=== PATIENT | female | born 1995 | race Caucasian/White ===

== ENCOUNTER 2020-02-25 15:17 | Outpatient (CLI) | payer BC, OTHER ==
[~2020-02-25] VITALS: Ht 165.1 cm; Wt 117.7 kg
--- NOTE | 2020-02-25 15:23 | NUR ---
TANYA DUNLAP presented to unit via w/c from ED, accompanied by mother, with c/o Lt.sided abd pain x2 days. Pt. weighed, gowned, voided, and to bed. EFHM and TOCO applied, VS taken. Pt. oriented to bed controls, call light, TV, heat, and A/C controls.
[2020-02-25 15:40] VITALS: BP 107/63
--- NOTE | 2020-02-25 15:40 | NUR ---
pt reports seeing Dr. Porter @ first OB appointment today @ 0900. moved here from [place] 2 weeks ago. states having Lt.sided abd pain that started x2 days ago, becoming worse. denies vaginal bleeding, leaking fluid. +FM. tenderness palpated to Lt.quad. abd soft to palpation.
[2020-02-25] MEDS ORDERED: PREN1TAB79 PO (15:57)
[2020-02-25] MEDS ORDERED: SERT100T PO (15:57)
[2020-02-25] MEDS ORDERED: SERT50TA2 PO (15:57)
[2020-02-25 16:03] VITALS: BP 107/63
[2020-02-25 16:07] LABS: BILIRUBIN,URINE NEGATIVE (NEGATIVE); CLARITY,URINE CLEAR; COLOR,URINE YELLOW; GLUCOSE, URINE (UA) NEGATIVE (NEGATIVE); KETONES,URINE TRACE (NEGATIVE); LEUKOCYTE ESTERASE ,URINE NEGATIVE (NEGATIVE); NITRITE,URINE NEGATIVE (NEGATIVE); PROTEIN,URINE NEGATIVE (NEGATIVE)
--- NOTE | 2020-02-25 16:20 | NUR ---
verbal report given to Dr. Carmichael. new orders received.
[2020-02-25 16:22] LABS: AMORPHOUS SEDIMENT,UR RARE AMOR URATES /LPF; BACTERIA,URINE FEW /HPF; CALCIUM OXALATE CRYSTALS,UR RARE /LPF
[2020-02-25] MEDS ORDERED: cefTRIAXone FOR IV USE 1,000 MG in WATER (STERILE) FOR INJECTION 10 ML IV ONE (16:45)
[2020-02-25] MEDS ORDERED: LACTATED RINGERS 1,000 ML IV SCH (16:45)
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
[2020-02-25] MEDS ORDERED: cefTRIAXone 1,000 MG IV (ROCEPHIN) VIAL ONE (16:53)
[2020-02-25] MEDS ORDERED: 0.9% SODIUM CHLORIDE PF INJ 20 ML VIAL ONE (16:54)
[2020-02-25] MEDS ORDERED: LACTATED RINGERS 1,000 ML IV ONE (16:54)
[2020-02-25] MEDS ORDERED: WATER (STERILE) FOR INJECTION 10 ML ONE (16:57)
[2020-02-25] MEDS ORDERED: LIDOCAINE 1% INJ 20 ML 20 ML VIAL INJ ONE (17:00)
[2020-02-25] MEDS ORDERED: ACETAMINOPHEN 500 MG TAB (TYLENOL) PO NR (17:00)
[2020-02-25] MEDS ORDERED: cefTRIAXone 1,000 MG/2.86 ml vial (IM ONLY) IM SCH (17:00)
[2020-02-25] MEDS ORDERED: cefTRIAXone FOR IV USE 1,000 MG in WATER (STERILE) FOR INJECTION 10 ML IV NR (17:00)
[2020-02-25 17:29] LABS: ALANINE AMINOTRANSFERASE 7 U/L (0-55); ALBUMIN 3.5 GM/DL (3.2-4.5); ALKALINE PHOSPHATASE 75 U/L (40-136); BILIRUBIN,TOTAL 0.2 MG/DL (0.1-1.0); BUN/CREATININE RATIO 11; CALCIUM 9.4 MG/DL (8.5-10.1); CARBON DIOXIDE 22 MMOL/L (21-32); CHLORIDE 105 MMOL/L (98-107); CREATININE SERUM 0.65 MG/DL (0.60-1.30); GFR ESTIMATED > 60; GLUCOSE 108 MG/DL (70-105); POTASSIUM 3.4 MMOL/L (3.6-5.0); SODIUM 137 MMOL/L (135-145); TOTAL PROTEIN 6.9 GM/DL (6.4-8.2)
--- NOTE | 2020-02-25 17:42 | Discharge Inst-Women's Service ---
Discharge Inst-Women's Serv Depart Medication/Instructions Instructions Take Tylenol for pain as needed, do not exceed 3 grams of Tylenol per day. Order a belly band or buy a belly band at your local pharmacy for round ligament pain. Final Diagnosis UTI in , Round ligament pain Problems Reviewed?: Yes Consults/Follow Up Additional Follow Up: Yes Orders/Referrals Patient to follow up with Dr. Porter as scheduled. Activity Activity: Activity as Tolerated Driving Instructions: You May Drive NO SMOKING: NO SMOKING Diet Discharge Diet: No Restrictions Symptoms to Report to : Eyesight Changes, Urine Color Change (Blood in urine), Fever Over 101 Degrees F, Pain/Pressure in Chest, Memory Changes Suddenly, Shortness of Breath For Any Problems or Questions: Contact Your Physician, Go to Emergency Room NATASHA LOBO MD Feb 25, 2020 17:42
--- NOTE | 2020-02-25 18:27 | NUR ---
IV site dc'd. dismissal instructions given, verbalizes understanding. reviewed sx's to RTC. signature page signed, placed on chart.
--- NOTE | 2020-02-25 18:30 | NUR ---
pt ambulated to private vehicle without sx's of distress. pt stable.
== END 2020-02-25 18:30 | disposition home or self-care (01) ==
LOC: LDRP 15:17 → WSo 15:17
PROVIDERS: ATTEND Family Medicine
DX: O23.43 Unspecified infection of urinary tract in pregnancy, third trimester (principal); O99.343 Other mental disorders complicating pregnancy, third trimester; Z3A.29 29 weeks gestation of pregnancy; F12.90 Cannabis use, unspecified, uncomplicated; Z91.5 Personal history of self-harm
CPT/HCPCS: 36415; 80053; 81000; 87088; 96361; 96374; 99213

== ENCOUNTER 2020-04-24 11:09 | Outpatient (RCR) | payer BC ==
[~2020-04-24] VITALS: Ht 165.1 cm; Wt 122.3 kg
[~2020-04-24 11:09] MED LIST: PREN1TAB79 PO; SERT100T PO; SERT50TA2 PO
[2020-04-25] MEDS ORDERED: ACHD5005 PO (10:41)
[2020-04-25] MEDS ORDERED: DCS100C PO (10:41)
[2020-04-25] MEDS ORDERED: IBUP-844 PO (10:41)
== END 2020-04-24 14:17 | disposition home or self-care (01) ==
LOC: PREOP 11:09
PROVIDERS: ATTEND Obstetrics & Gynecology
DX: Z01.818 Encounter for other preprocedural examination (principal)

== ENCOUNTER 2020-04-25 07:13 | Inpatient (IN) | payer BC ==
[2020-04-25] VITALS (9 sets, daily range): BP systolic 90–123; BP diastolic 43–70
[~2020-04-25] VITALS: Ht 167 cm; Wt 122.1 kg
--- NOTE | 2020-04-25 07:30 | NUR ---
TANYA DUNLAP presented to unit via ambulation from home, accompanied by mother , with c/o UNCONTROLLED GDMA 2 primary c/s. TANYA DUNLAP weighed, gowned, voided, and to bed. EFHM and TOCO applied, VS taken. TANYA DUNLAP oriented to bed controls, call light, TV, heat, and A/C controls.
[2020-04-25] MEDS ORDERED: ceFAZolin 2 GM IV Premixed 50 ML IV ONE (07:45)
[2020-04-25] MEDS ORDERED: CITRIC ACID/SOB CIT (BICITRA) 30 ML UDC PO ONE (08:00)
[2020-04-25] MEDS ORDERED: FAMOTIDINE 20MG/2ML IV (PEPCID) IV ONE (08:00)
[2020-04-25] MEDS ORDERED: METOCLOPRAMIDE INJ 10 MG/2 ML (REGLAN) IV ONE (08:00)
--- NOTE | 2020-04-25 08:07 | History & Physical-OB ---
OB - Chief Complaint & HPI Date/Time Date of Admission: Date of Admission: Apr 25, 2020 at 07:13 Date seen by a Provider: Apr 25, 2020 Time Seen by a Provider: 07:55 Chief Complaint/History OB-Reason for Admission/Chief: Section Hx : 1 Hx Para: 0 Expected Date of Delivery: Apr 27, 2020 Gestational Age in Weeks: 38 Gestational Age in Days: 2 Indication for : macrosomia (4500 gms) Other reason for admission: Patient sent from [facility] yesterday for concerns with Macrosomia, and late GDM. Patient reports checking her BS and fasting levels yesterday of 170s. EFW per [facility] 4500 gms. Discussed with patient yesterday proceeding with PLTCS at 38 weeks due to poor diabetic control. Admission Nurse Assessment Rev: Yes History of Labs see prenatals Allergies and Home Medications Allergies Coded Allergies: No Known Drug Allergies (Unverified , 02/25/20) Home Medications Vit W-Ca,Fe,FA(<1 mg) 1 Each Tablet, 1 EACH PO DAILY, (Reported) Patient Home Medication List Home Medication List Reviewed: Yes OB - History Hx of Present Care: Yes Ultrasounds: Abnormal US findings (EFW > 4500) Obstetrical Complications: Gestational Diabetes Medical Complications: None Patient Past Medical History n/a Immunizations Date of Influenza Vaccine: Apr 03, 2020 OB - Admission Exam Physical Exam HEENT: NCAT Heart: Rhythm Normal Lungs: Clear Abdomen: Gravid Extremities: Normal Reflexes: Normal Membranes: Intact Heart Rate: 130's Accelerations: Accelerations Present Decelerations: No Decelerations Short Term Variability: Present Electrocardiogram Technician Variability: Average (6-25) Contractions on Admission: None Intensity: Mild OB - Assessment/Plan/Diagnosis Assessment Assessment: section Admission Dx 24 yo @ 38.2 PLTCS EFW 4500 gms Uncontrolled GDMA2 BMI 38.2 Admission Status: Inpatient Order (span 2 midnights) Reason for Inpatient Admission: Primary LTCS Plan Plan: Section ORLANDO CALDERON DO Apr 25, 2020 08:07
[2020-04-25 08:15] LABS: BASOPHILS % (AUTO) 0 % (0-10); EOSINOPHILS % (AUTO) 0 % (0-10); HEMATOCRIT 32 % (35-52); HEMOGLOBIN 10.9 g/dL (11.5-16.0); LYMPHOCYTES % (AUTO) 18 % (12-44); MEAN CORPUSCULAR HEMOGLOBIN 30 pg (25-34); MEAN CORPUSCULAR HGB CONC 34 g/dL (32-36); MEAN CORPUSCULAR VOLUME 88 fL (80-99); MEAN PLATELET VOLUME 11.1 fL (9.0-12.2); MONOCYTES # (AUTO) 0.7 10^3/uL (0.0-1.0); MONOCYTES % (AUTO) 6 % (0-12); NEUTROPHILS # (AUTO) 8.3 10^3/uL (1.8-7.8); NEUTROPHILS % (AUTO) 76 % (42-75); PLATELET COUNT 202 10^3/uL (130-400)
--- NOTE | 2020-04-25 08:15 | Discharge Inst-Women's Service ---
Discharge Inst-Women's Serv Depart Medication/Instructions New, Converted or Re-Newed RX: RX on Chart Problems Reviewed?: Yes Consults/Follow Up Additional Follow Up: Yes Activity Activity: Activity as Tolerated Driving Instructions: No Driving for 1 Week NO SMOKING: NO SMOKING Nothing Inside Vagina: No Douching, No [place], No Tampons Diet Discharge Diet: No Restrictions Symptoms to Report to : Bleeding Excessive, Pain Increased, Fever Over 101 Degrees F, Vaginal Bleeding Increase, Questions/Concerns For Any Problems or Questions: Contact Your Physician Skin/Wound Care Infection Signs and Symptoms: Increased Redness, Foul Odor of Wound, Increased Drainage, Skin Itchy or Has a Rash, Increased Swelling, Temperature Above 101 F Operative Area Clean and Dry: Keep Incision Clean/Dry Stitches/Busby/Dermabond: Dermabond, Care of Stitches Bathing Instructions: ORLANDO James DO Apr 25, 2020 08:15
--- NOTE | 2020-04-25 08:30 | NUR ---
DR CALDERON AWARE OF DIFFICULTY OF CONTINOUS MONITORING.
--- NOTE | 2020-04-25 08:30 | NUR ---
EXTREMELY DIFFICULT TO MONITOR HEART TONES ON PT DUE TO SIZE OF PT AND BABY. ABLE TO LOCATE FHTS BUT DUE TO CONSTANT MOVEMENT OF INFANT UNABLE TO KEEP HEART TONES ON MONITOR. FHTS NOTED AT 130-140, NO DECELS NOTED, IRREGULAR CONTRACTIONS NOTED 3-6 MINUTE APART, 60-80 SECONDS IN DURATIONS, MILD TO PALPATION. PT DENIES PAIN WITH CONTRACTIONS.
[2020-04-25] MEDS: LACTATED RINGERS 1,000 ML IV PRN ×2 (08:35→09:45)
--- NOTE | 2020-04-25 09:30 | NUR ---
FHTS NOTED 135, NO DECELS NOTED, STILL VERY DIFFICULT TO MONITOR FHTS.
[2020-04-25] MEDS ORDERED: fentaNYL INJECTION 100 MCG/2 ML AMP ONE (09:55)
[2020-04-25] MEDS ORDERED: KETAMINE/NaCl 50 MG/5 ML SYRINGE (ED ONLY) ONE (09:55)
--- NOTE | 2020-04-25 10:30 | NUR ---
PT AMBULATED TO OR WITH SAP BOBJ DEVELOPER JOSE J AT SIDE, NO DISTRESS NOTED.
[2020-04-25] MEDS ORDERED: DCS100C PO (10:41)
[2020-04-25] MEDS ORDERED: IBUP-844 PO (10:41)
[2020-04-25] MEDS ORDERED: ACHD5005 PO (10:41)
[2020-04-25] MEDS ORDERED: TETANUS,DIPTH,PERTUSS P/F (BOOSTRIX) 0.5 ML VIAL IM SCH (10:45)
[2020-04-25] MEDS ORDERED: ONDANSETRON 4 MG/2 ML (SDV) Z0FRAN IVP PRN (10:45)
[2020-04-25] MEDS ORDERED: MEASLES,MUMPS,RUBELLA 1 EA INJ SC SCH (10:45)
[2020-04-25] MEDS ORDERED: ONDANSETRON 4 MG/2 ML (SDV) Z0FRAN ONE (11:34)
[2020-04-25] MEDS ORDERED: KETOROLAC 30 MG/ML VIAL ONE (11:35)
[2020-04-25] MEDS ORDERED: PHENYLEPHRINE 100 MCG/ML 10 ML (ANESTHESIA) SYR ONE (11:35)
[2020-04-25] MEDS ORDERED: OXYTOCIN PRE-MIX DRIP 1,000 ML IV ONE (11:37)
[2020-04-25] MEDS ORDERED: BUPIVACAINE 0.5% 30 ML (SENSORCAINE) VIAL ONE (12:23)
--- NOTE | 2020-04-25 13:00 | NUR ---
report received from geronimo doshi rn at this time
[2020-04-25] MEDS: OXYTOCIN PRE-MIX DRIP 500 ML IV SCH (13:16)
[2020-04-25] MEDS: HYDROcodone/APAP 5 MG/325 MG (LORTAB) TAB PO PRN ×3 (13:28→20:16)
--- NOTE | 2020-04-25 14:48 | NUR ---
Pt to nursery via wheelchair with this RN to see baby.
[2020-04-25] MEDS: KETOROLAC 30 MG/ML VIAL IV SCH (17:25)
[2020-04-25] MEDS: CATHETER FLUSH 10 ML SYR IV SCH (17:25)
--- NOTE | 2020-04-25 17:30 | NUR ---
Rn at bedside. VSS, Toradol admin, see eMAR. Pt assisted up to bathroom at this time. Void 200ml, pericare, gown changed.
--- NOTE | 2020-04-25 19:06 | NUR ---
report given to dayton almaguer
--- NOTE | 2020-04-25 19:45 | OPERATIVE REPORT ---
DATE OF SERVICE: 04/25/2020 PREOPERATIVE DIAGNOSES: 1. A 24-year-old at 38 weeks and 1 day gestation. 2. Poor compliance and control with gestational diabetes, A2. 3. Suspected macrosomia. POSTOPERATIVE DIAGNOSES: 1. A 24-year-old at 38 weeks and 1 day gestation. 2. Poor compliance and control with gestational diabetes, A2. 3. Suspected macrosomia. 4. macrosomia. SURGEON: Clovis Lundy DO. PROCEDURE PERFORMED: Primary low transverse section. SUPERVISOR ESTIMATOR AND DRAFTER: Bernadine Álvarez DNP, was necessary for manipulation and retraction throughout the procedure. ANESTHESIA: Spinal. ESTIMATED BLOOD LOSS: 700 mL. URINE OUTPUT: 100 mL clear at the end of the procedure. FLUIDS: 1400 mL lactated Ringer's solution. FINDINGS: A live male , weighing 9 pounds 8 ounces with Apgars pending. Grossly normal appearing uterus, bilateral fallopian tubes and ovaries as well as a true knot in the cord. SPECIMEN SENT: Placenta. INDICATIONS FOR PROCEDURE: This 24-year-old female patient has consulted my office yesterday for macrosomia identified on ultrasound at [facility]. She was also found to have a fasting blood sugar this morning approximately 170. Due to the undiagnosed gestational diabetes and the weight, I discussed with the patient proceeding with a primary . This was recommended due to her EFW and underlying gestational diabetes diagnosis. Risk of was reviewed with the patient in detail. After all her questions were answered, consent was obtained in the preoperative area and the patient was taken to the operating room. OPERATIVE REPORT IN DETAIL: Once in the operating room, spinal anesthesia was found to be adequate, placed in supine position with leftward tilt, prepped and draped in normal sterile fashion. Timeout was performed and anesthesia was tested. A Pfannenstiel skin incision was then made with a knife and carried down through layer of fascia using Bovie cautery. Fascial incision was extended laterally using Bovie cautery. Superior aspect of fascial incision was then grasped with Santhosh clamps, tented up and dissected off the underlying rectus muscles. The inferior aspect of fascial incision was then grasped with Santhosh clamps, tented up and dissected off the underlying rectus muscles. Rectus muscles were dissected down the midline using Jessica scissors, which exposed the peritoneum, which I entered bluntly using blunt traction. Cayetano ring retractor was placed in the peritoneal incision, which offered excellent lateral sidewall retraction. I then identified the lower uterine segment, which was found to be thinned out. A low transverse incision made through the vesicouterine peritoneum and this was bluntly dissected off the lower uterine segment. I then proceeded with myotomy until membranes were visualized, at which point, I extended the uterine incision laterally and superiorly using bandage scissors. Amniotomy was performed, clear fluid was noted. A copious amount of fluid is expressed from the uterus. The infant was found in vertex presentation. With gentle fundal pressure, the infant's head is elevated up to the incision where it was delivered through the incision. The nares and oropharynx were bulb suctioned. Anterior and posterior shoulders were delivered and the infant was then brought out to the operative field with cord doubly clamped and cut and infant handed off to waiting worship pastor, Dr. Porter who is present for delivery. Cord blood was collected, 3-vessel cord and intact placenta was delivered spontaneously thereafter. IV Pitocin was initiated to facilitate uterine contraction. Uterine fundus became firm with bimanual massage. Uterus was exteriorized and cleared of all endometrial clots and debris. I then proceeded with closing the uterine incision using #0 Vicryl suture in running locked fashion, second layer of imbricating #0 Monocryl was placed. Excellent hemostasis was noted after doing this. I then placed the uterus back in the pelvis and copiously irrigated the pelvis using normal saline. There was no active bleeding noted from any of my dissection planes. I placed Interceed antiadhesive over my low transverse incision and then proceeded with closing the peritoneum after I removed the Cayetano ring retractor. The peritoneum was reapproximated using 3-0 Vicryl suture in running fashion. Rectus muscle reapproximated using 3-0 Vicryl suture in interrupted fashion. The fascia was reapproximated using #0 Vicryl suture in running fashion. Subcutaneous tissue was reapproximated using 3-0 plain interrupted subcutaneous stitch and skin reapproximated using 4-0 Monocryl running subcuticular. Dermabond was applied to incision and sterile dressing with adhesive white tape. The patient tolerated the procedure well and sent to recovery in stable condition. Lap and sponge counts were correct at the end of the procedure. Instrument counts correct as well. Two grams of Ancef given preoperatively for infection prophylaxis. Job ID: [id number] DocumentID: [id number] Dictated Date: 04/25/2020 11:52:23 Policy Change Clerk Date: 04/25/2020 19:45:02 Dictated By: CLOVIS LUNDY DO
[2020-04-25] MEDS: DOCUSATE SODIUM 100 MG (COLACE) CAP PO SCH (20:09)
--- NOTE | 2020-04-25 20:20 | NUR ---
Pt put light on to ask for assistance with breastpump. Pump hooked up and running. Pt states has headache that was not helped by the lortab or by drinking caffeine. Encouraged to continue to hydrate and will lay prone when finished pumping. will monitor.
--- NOTE | 2020-04-25 20:45 | NUR ---
Pt up to wc with standby assist. Tolerated well. Transferred to nsy to view . Pt next to wes warmer viewing and bonding well. Nsy rn Linda at side. Pt remains in nsy at this time.
--- NOTE | 2020-04-25 21:45 | NUR ---
Pt back to room per wc accompanied by megan almaguer. Pt up to void, able to void. Pt up to sit in chair. out to mom's room per crib accompanied by wyatt rn. to mom's arms.
[2020-04-26] VITALS: BP 117/59
[2020-04-26] MEDS: KETOROLAC 30 MG/ML VIAL IV SCH ×4 (00:07→00:48)
[2020-04-26] MEDS: CATHETER FLUSH 10 ML SYR IV SCH ×2 (00:07→00:46)
[2020-04-26] MEDS ORDERED: IBUPROFEN 800 MG (MOTRIN) TAB PO ONE (00:13)
[2020-04-26] MEDS ORDERED: IBUPROFEN 600 MG (MOTRIN) TAB PO ONE ×2 (00:14→05:29)
[2020-04-26] MEDS: IBUPROFEN 600 MG (MOTRIN) TAB PO SCH ×4 (00:15→22:10)
[2020-04-26] MEDS: OXYTOCIN PRE-MIX DRIP 500 ML IV SCH (00:44)
[2020-04-26] MEDS: LACTATED RINGERS 1,000 ML IV PRN (00:46)
[2020-04-26 05:26] LABS: BASOPHILS % (AUTO) 0 % (0-10); EOSINOPHILS % (AUTO) 0 % (0-10); HEMATOCRIT 27 % (35-52); LYMPHOCYTES # (AUTO) 1.9 10^3/uL (1.0-4.0); LYMPHOCYTES % (AUTO) 18 % (12-44); MEAN CORPUSCULAR HEMOGLOBIN 29 pg (25-34); MEAN CORPUSCULAR HGB CONC 33 g/dL (32-36); MEAN CORPUSCULAR VOLUME 89 fL (80-99); MEAN PLATELET VOLUME 11.3 fL (9.0-12.2); MONOCYTES # (AUTO) 0.7 10^3/uL (0.0-1.0); MONOCYTES % (AUTO) 7 % (0-12); NEUTROPHILS # (AUTO) 7.9 10^3/uL (1.8-7.8); NEUTROPHILS % (AUTO) 74 % (42-75); PLATELET COUNT 180 10^3/uL (130-400); WHITE BLOOD COUNT 10.6 10^3/uL (4.3-11.0)
[2020-04-26 05:30] VITALS: BP 109/56
--- NOTE | 2020-04-26 08:07 | Postpartum Progress Note ---
Note Note Day # 1 Subjective: Patient is without complaints. Ambulating, voiding. Tolerating a regular diet without nausea or vomiting. Normal lochia. Pain is well controlled with oral pain medications. Objective: Physical Exam: General - Alert and oriented, no apparent distress Abdomen - Soft, appropriately tender to palpation, non-distended, fundus firm at umbilicus Extremities - no edema, negative [employer] bilaterally Incision- c/d/i Assessment: POD 1 PLTCS Acute blood loss anemia GDMA2- with continued BS control issues Plan: Routine care. Encourage breast feeding. Encourage ambulation. Ferrous sulfate supplementation. Starting on low dose metformin today Plan for discharge tomorrow Vitals - Labs Vital Signs - I&O Vital Signs Date Time Temp Pulse Resp B/P (MAP) Pulse Ox O2 Delivery O2 Flow Rate FiO2 04/26/20 05:30 36.2 75 18 109/56 (73) 95 Room Air 04/26/20 00:00 36.4 86 18 117/59 (78) 96 Room Air 04/25/20 20:00 36.2 89 18 115/67 (83) 95 Room Air 04/25/20 17:30 36.7 77 16 114/58 (76) 96 Room Air 04/25/20 13:28 36.8 57 18 123/57 (79) 97 Room Air 04/25/20 12:45 36.4 20 104/45 (64) 98 Room Air 04/25/20 12:45 Room Air 04/25/20 12:40 Room Air 04/25/20 12:40 36.6 20 90/43 (59) 97 Room Air 04/25/20 12:25 Room Air 04/25/20 12:25 36.4 20 102/64 (77) 98 Room Air 04/25/20 12:10 Room Air 04/25/20 12:10 36.4 20 102/66 (78) 98 Room Air I & O 04/26/20 07:00 Intake Total 4740 ml Output Total 1375 ml Balance 3365 ml Labs Laboratory Tests 04/25/20 08:29: Glucometer 103 04/25/20 12:05: Coronavirus (COVID-19)(PCR) Negative 04/25/20 20:06: Glucometer 121H 04/26/20 04:55: White Blood Count 10.6, Red Blood Count 3.06L, Hemoglobin 9.0L, Hematocrit 27L, Mean Corpuscular Volume 89, Mean Corpuscular Hemoglobin 29, Mean Corpuscular Hemoglobin Concent 33, Red Cell Distribution Width 14.6H, Platelet Count 180, Mean Platelet Volume 11.3, Immature Granulocyte % (Auto) 0, Neutrophils (%) (Auto) 74, Lymphocytes (%) (Auto) 18, Monocytes (%) (Auto) 7, Eosinophils (%) (Auto) 0, Basophils (%) (Auto) 0, Neutrophils # (Auto) 7.9H, Lymphocytes # (Auto) 1.9, Monocytes # (Auto) 0.7, Eosinophils # (Auto) 0.0, Basophils # (Auto) 0.0, Immature Granulocyte # (Auto) 0.0 04/26/20 05:38: Glucometer 111H ORLANDO CALDERON DO Apr 26, 2020 08:07
[2020-04-26 10:30] VITALS: BP 116/63
[2020-04-26] MEDS: DOCUSATE SODIUM 100 MG (COLACE) CAP PO SCH ×2 (10:44→22:10)
[2020-04-26] MEDS: metFORMIN XR 500 MG (GLUCOPHAGE XR) TAB PO SCH (10:44)
[2020-04-26] MEDS: HYDROcodone/APAP 5 MG/325 MG (LORTAB) TAB PO PRN (10:52)
--- NOTE | 2020-04-26 14:58 | Anesthesia-Regional Post-Op ---
Regional Patient Condition Mental Status: Alert, Oriented x3 Circulation: Same as Pre-Op Headache: Absent Sensation: Full Recovery Motor Block: Absent Post Op Complications Complications None Follow Up Care/Instructions Patient Instructions None needed. Anesthesia/Patient Condition Patient is doing well, no complaints, stable vital signs, no apparent adverse anesthesia problems. No complications reported per nursing. MATT MAJOR CRNA Apr 26, 2020 14:58
[2020-04-26 15:20] VITALS: BP 122/74
--- NOTE | 2020-04-26 22:10 | NUR ---
5-6 cm round lump palpated in pt's abd when lifting panus to view pt's incision. No external bruising or redness noted. Pt denies any tenderness to the area. Will continue to monitor.
[2020-04-26 22:12] VITALS: BP 112/58
--- NOTE | 2020-04-27 01:00 | NUR ---
cold tray provided per pt's request.
[2020-04-27] MEDS: HYDROcodone/APAP 5 MG/325 MG (LORTAB) TAB PO PRN (04:26)
[2020-04-27] MEDS: IBUPROFEN 600 MG (MOTRIN) TAB PO SCH ×2 (04:26→09:58)
--- NOTE | 2020-04-27 04:30 | NUR ---
pt put oracle applications analyst light c/o headache. Pt concerned about a possible spinal headache. Pt states headache is worse with laying flat. States headache is better with position changes. Verbalized with pt that upon assessment it doesn't appear to be a spinal headache but would let anesthesia know. Motrin and lortab given.
[2020-04-27 04:59] VITALS: BP 121/68
[2020-04-27] MEDS: metFORMIN XR 500 MG (GLUCOPHAGE XR) TAB PO SCH (07:32)
--- NOTE | 2020-04-27 07:32 | NUR ---
Scheduled Metformin PO given at this time.
[2020-04-27 09:55] VITALS: BP 108/60
--- NOTE | 2020-04-27 09:55 | NUR ---
AM shift assessment completed and vital signs obtained, see interventions. Plan of care reviewed with patient. Patient verbalizes understanding and questions answered. Scheduled Colace and Motrin PO given.
[2020-04-27] MEDS: DOCUSATE SODIUM 100 MG (COLACE) CAP PO SCH (09:58)
--- NOTE | 2020-04-27 10:30 | NUR ---
Dr. Lundy here to see patient. New orders received.
--- NOTE | 2020-04-27 10:38 | Postpartum Progress Note ---
Note Note Day # 2 Subjective: Patient is without complaints. Ambulating, voiding. Tolerating a regular diet without nausea or vomiting. Normal lochia. Pain is well controlled with oral pain medications. Objective: Physical Exam: General - Alert and oriented, no apparent distress Abdomen - Soft, appropriately tender to palpation, non-distended, fundus firm at umbilicus Extremities - no edema, negative Taco's bilaterally Incision- c/d/i Assessment: POD 2 PLTCS Acute blood loss anemia Plan: Routine care. Encourage breast feeding. Encourage ambulation. Ferrous sulfate supplementation. Continue metformin at discharge Plan for discharge today Vitals - Labs Vital Signs - I&O Vital Signs Date Time Temp Pulse Resp B/P (MAP) Pulse Ox O2 Delivery O2 Flow Rate FiO2 04/27/20 09:55 36.7 86 18 108/60 (76) 96 Room Air 04/27/20 04:59 36.9 76 20 121/68 (85) 97 Room Air 04/26/20 22:12 84 20 112/58 (76) 97 Room Air 04/26/20 15:20 36.4 82 16 122/74 (90) 99 Room Air Labs Laboratory Tests 04/26/20 22:16: Glucometer 102 04/27/20 07:28: Glucometer 113H 04/27/20 09:51: Glucometer 117H ORLANDO CALDERON DO Apr 27, 2020 10:38
--- NOTE | 2020-04-27 11:09 | NUR ---
Discharge instructions and medications reviewed with patient both written and verbally. Patient verbalizes understanding and questions answered. Written prescriptions provided to patient.
--- NOTE | 2020-04-27 12:15 | NUR ---
Patient discharged at this time via wheelchair and accompanied down to awaiting private vehicle by this RN. No signs or symptoms of distress noted.
== END 2020-04-27 12:15 | disposition home or self-care (01) | DRG 787 ==
LOC: LDRP 07:13 → WS 13:00
PROVIDERS: ADMIT Obstetrics & Gynecology; ATTEND Obstetrics & Gynecology
PROC: 10D00Z1 Extraction of Products of Conception, Low, Open Approach (ICD-10-PCS; principal; 2020-04-25 10:33)
DX: O34.211 Maternal care for low transverse scar from previous cesarean delivery (principal); D62 Acute posthemorrhagic anemia; Z3A.38 38 weeks gestation of pregnancy; Z37.0 Single live birth; O24.92 Unspecified diabetes mellitus in childbirth; O66.2 Obstructed labor due to unusually large fetus; O90.81 Anemia of the puerperium
CPT/HCPCS: 36415; 82962; 85025; 86850; 86900; 86901; 87635; 90715; 94664

== ENCOUNTER 2021-02-06 00:24 | Observation (INO) | payer MEDICAID ==
[~2021-02-06] VITALS: Ht 165.1 cm; Wt 117.0 kg
[~2021-02-06 00:24] MED LIST changes: +ACHD5005 PO; +DCS100C PO; +IBUP-844 PO
[2021-02-06] MEDS ORDERED: LACTATED RINGERS 1,000 ML IV ONE ×2 (00:45→03:00)
[2021-02-06 00:50] LABS: BILIRUBIN,URINE NEGATIVE (NEGATIVE); CLARITY,URINE SL CLOUDY; COLOR,URINE YELLOW; GLUCOSE, URINE (UA) NEGATIVE (NEGATIVE); KETONES,URINE NEGATIVE (NEGATIVE); LEUKOCYTE ESTERASE ,URINE NEGATIVE (NEGATIVE); NITRITE,URINE NEGATIVE (NEGATIVE); PROTEIN,URINE 3+ (NEGATIVE)
[2021-02-06 01:01] LABS: BACTERIA,URINE NEGATIVE /HPF; CALCIUM OXALATE CRYSTALS,UR FEW /LPF; WBC,URINE 0-2 /HPF
[2021-02-06 01:04] LABS: AMPHETAMINE SCREEN, URINE NEGATIVE (NEGATIVE); BARBITURATE SCREEN URINE NEGATIVE (NEGATIVE); BENZODIAZEPINES SCREEN URINE NEGATIVE (NEGATIVE); CANNABINOID SCREEN, URINE POSITIVE (NEGATIVE); COCAINE SCREEN URINE NEGATIVE (NEGATIVE); HCG,QUALITATIVE URINE NEGATIVE (NEGATIVE); METHADONE STAT NEGATIVE (NEGATIVE); METHAMPHETAMINE SCREEN URINE S NEGATIVE (NEGATIVE); OPIATE SCREEN URINE NEGATIVE (NEGATIVE); OXYCODONE STAT NEGATIVE (NEGATIVE); PROPOXYPHENE STAT NEGATIVE (NEGATIVE); TRICYCLIC ANTIDEPRESSANTS SCRE NEGATIVE (NEGATIVE)
[2021-02-06 01:04] LABS: BASOPHILS % (AUTO) 0 % (0-10); EOSINOPHILS # (AUTO) 0.1 10^3/uL (0.0-0.3); EOSINOPHILS % (AUTO) 1 % (0-10); HEMATOCRIT 38 % (35-52); HEMOGLOBIN 12.9 g/dL (11.5-16.0); LYMPHOCYTES # (AUTO) 3.1 10^3/uL (1.0-4.0); LYMPHOCYTES % (AUTO) 35 % (12-44); MEAN CORPUSCULAR HEMOGLOBIN 30 pg (25-34); MEAN CORPUSCULAR HGB CONC 34 g/dL (32-36); MEAN CORPUSCULAR VOLUME 88 fL (80-99); MEAN PLATELET VOLUME 9.6 fL (9.0-12.2); MONOCYTES # (AUTO) 0.5 10^3/uL (0.0-1.0); MONOCYTES % (AUTO) 6 % (0-12); NEUTROPHILS # (AUTO) 5.1 10^3/uL (1.8-7.8); NEUTROPHILS % (AUTO) 58 % (42-75); PLATELET COUNT 300 10^3/uL (130-400); WHITE BLOOD COUNT 8.8 10^3/uL (4.3-11.0)
[2021-02-06 01:17] LABS: ALBUMIN 4.7 GM/DL (3.2-4.5); CHLORIDE 105 MMOL/L (98-107); POTASSIUM 3.4 MMOL/L (3.6-5.0); SODIUM 145 MMOL/L (135-145)
[2021-02-06 01:18] LABS: CALCIUM 9.4 MG/DL (8.5-10.1)
[2021-02-06 01:20] LABS: GLUCOSE 104 MG/DL (70-105); TOTAL PROTEIN 8.6 GM/DL (6.4-8.2)
[2021-02-06 01:21] LABS: BILIRUBIN,TOTAL 0.2 MG/DL (0.1-1.0); CARBON DIOXIDE 21 MMOL/L (21-32)
[2021-02-06 01:23] LABS: ALKALINE PHOSPHATASE 64 U/L (40-136); CREATININE SERUM 0.84 MG/DL (0.60-1.30); GFR ESTIMATED 83
[2021-02-06 01:25] LABS: BUN/CREATININE RATIO 26
[2021-02-06 01:26] LABS: ALANINE AMINOTRANSFERASE 18 U/L (0-55); SALICYLATE < 5.0 MG/DL (5.0-20.0)
[2021-02-06] MEDS ORDERED: LIDOCAINE/EPI 1%-1:100,000 (XYLOCAINE) 20ML INJ ONE (01:30)
[2021-02-06 01:32] LABS: ACETAMINOPHEN < 10 UG/ML (10-30)
[2021-02-06] MEDS ORDERED: LORazepam INJ 2 MG/ML (ATIVAN) VIAL IVP ONE (02:00)
[2021-02-06] MEDS ORDERED: HALOPERIDOL 5 MG/ML (HALDOL) VIAL IV ONE (02:00)
[2021-02-06] MEDS ORDERED: diphenhydrAMINE 50 MG/ML INJ (BENADRYL) IVP ONE (02:00)
--- NOTE | 2021-02-06 03:30 | ED Psychosocial ---
General Chief Complaint: Psych/Social Disorder Stated Complaint: ILLNESS Nursing Triage Note: PT PRESENTS TO ROOM #8 VIA [facility] GURNEY FROM HOME W/CO SELF INFLICTED INJURIES TO R ARM. EMS ADVISE PRIOR TO ARRIVAL ON SCENE PT CUT HERSELF MULTIPLE TIMES WITH A RAZOR BLADE. EMS ADVISE THEY WERE ABLE TO CONTROL BLEEDING TO INJURIES WITH PRESSURE DRSG. UPON ARRIVAL PT NOTABLY INTOXICATED AND TEARFUL REPORTING SHE DRANK 1/2 GALLON OF ESTEFANI BEAM WHISKEY PRIOR TO CUTTING HER R FA MULTIPLE TIMES WITH A RAZOR BLADE. MULTIPLE DEEP LACERATIONS NOTED TO R FA. WHEN ASKED PROMPTED PT TO CUT HER SELF PT STATES, "MY HEART HURTS. I DIDN'T THINK I WAS GOOD ENOUGH FOR MY BABY." WHEN ASKED IF PT WAS ATTEMPITNG TO KILL HERSELF WITH SELF INFLICTED INJURIES PT STATES, "NO I WAS NOT AND I'M NOT SUICIDAL EITHER. I KNOW HOW THIS SH*T WORKS!" PT REPORTS SHE MOVED TO THIS AREA X1 YEAR AGO FROM [place] TO LIVE WITH HER MOM AFTER A BREAK UP. PT REPORTS HX INPATIENT PSYCHIATRIC TX. PT REPORTS SHE HAS MISSED MULTIPLE SCHEDULE APPOINTMENTS WITH HER THERAPIST STATING, "I WASN'T ABLE TO GET OUT OF BED BECAUSE I'M SO DEPRESSED." PT REPORTS HX CUTTING. Source: police, EMS Exam Limitations: intoxication (PT IS INTOXICATED AND BELLIGERENT AND UNABLE TO OBTAIN A RELIABLE HISTORY ) History of Present Illness Date Seen by Provider: Feb 06, 2021 Time Seen by Provider: 00:27 Initial Comments PT ARRIVES VIA EMS WITH [place] [employer]ICERS, FROM HOME PT CALLED 911 HERSELF, AFTER INTENTIONALLY CUTTING HER RIGHT FOREARM MULTIPLE TIMES WITH A RAZOR BLADE PT WAS OUTSIDE WAITING ON THE PORCH WHEN POLICE AND EMS ARRIVED AT THE SCENE PT STATES SHE IS VERY DEPRESSED, AND "MY HEART HURTS" PT ADMITS TO DRINKING 1/2 GALLON OF ESTEFANI BEAM WHISKEY [facility] POLICE STATE THAT PT'S MOM AND STEP-FATHER WERE AT WORK THIS EVENING WHEN THIS OCCURRED, AND PT'S 9 MONTH OLD CHILD IS CURRENTLY WITH THEM POLICE STATE THAT WHEN THEY TALKED WITH PATIENT'S MOM AND STEP-FATHER, THEY REPORT THAT PT DRINKS VERY HEAVILY EVERY DAY--WHISKEY--AND HAS "CUT BACK ALOT" AND IS NOW "DOWN TO A GALLON OF WHISKEY A DAY" THEY ALSO REPORTED TO POLICE THAT THIS BEHAVIOR IS A FREQUENT ISSUE WITH THE PATIENT AND TOLD POLICE "SHE DOES THIS ALL THE TIME" PT ADMITS TO MULTIPLE PSYCH ADMITS SINCE THE AGE OF 16 STATES SHE WAS IN A [facility]ILITY FOR 7 MONTHS AT THE AGE OF 16, AND THEN WAS IN ONE FOR OVER A YEAR, IN ADDITION TO MULTIPLE OTHER SHORT TERM PSYCH ADMITS. PT STATES SHE IS SUPPOSED TO BE ON MEDICATIONS FOR DEPRESSION, BUT DOES NOT TAKE THEM STATES SHE HAS HAD MULTIPLE MENTAL HEALTH APPOINTMENTS, BUT HAS NEVER WENT "BECAUSE I WAS TOO DEPRESSED TO GET OUT OF BED" AT ONE POINT, PT STATED THAT SHE "WASN'T SUICIDAL--I KNOW HOW THIS SHIT WORKS" PT STATES HER MOM AND STEP-FATHER MOVED HERE FROM [place] ABOUT 2 YEARS AGO, AND SHE MOVED HERE ABOUT 1 YEAR AGO, AND LIVES WITH THEM AND HER 9 MONTH OLD CHILD. PT DID DELIVER HERE IN APRIL 2020--PT'S ONLY OTHER VISIT HERE PT STATES SHE IS UP TO DATE ON TETANUS VACCINATION--STATES "I'VE HAD 4 IN THE LAST YEAR" PCP: PT HAS BE[place] [facility] [place] SHE [place]ED 04/2020 Allergies and Home Medications Allergies Coded Allergies: No Known Drug Allergies (Unverified , 02/25/20) Home Medications Docusate Sodium 100 Mg Capsule, 100 MG PO BID PRN for CONSTIPATION-1ST LINE Prescribed by: ORLANDO CALDERON on 04/25/20 1041 Hydrocodone/Acetaminophen 1 Each Tablet, 1-2 TAB PO Q6HR PRN for PAIN-MODERATE (5-7) Prescribed by: ORLANDO CALDERON on 04/25/20 1041 Ibuprofen 600 Mg Tablet, 600 MG PO Q6HR Prescribed by: ORLANDO CALDERON on 04/25/20 1041 Vit W-Ca,Fe,FA(<1 mg) 1 Each Tablet, 1 EACH PO DAILY, (Reported) Patient Home Medication List Home Medication List Reviewed: Yes Review of Systems Constitutional: other (UNABLE TO OBTAIN FROM PT) Musculoskeletal: see HPI Skin: see HPI Psychiatric/Neurological: See HPI Past Ipuoxfh-Nicono-Gzxgbx Hx Patient Social History Tobacco Use?: No Tobacco type used: Cigarettes Smoking Status: Former Smoker Substance use?: No Alcohol Use?: Yes (OVER A GALLON OF WHISKEY/HARD LIQUOR DAILY) Alcohol type: Hard Liquor Alcohol Frequency: Daily Pt feels they are or have been: No Immunizations Up To Date PED Vaccines UTD: Yes Seasonal Allergies Seasonal Allergies: Yes Past Medical History Surgeries: No Respiratory: No Currently Using CPAP: No Currently Using BIPAP: No Cardiac: No Neurological: No Genitourinary: No Gastrointestinal: No Musculoskeletal: No Endocrine: Yes (GESTATIONAL DIABETES, ) HEENT: No Cancer: No Psychosocial: Yes (SELF HARM/CUTTING) Anxiety, Suicide Attempts, Depression Integumentary: No Blood Disorders: No Family Medical History Asthma G8 BROTHER Diabetes mellitus 19 MOTHER Physical Exam Vital Signs - First Documented 02/06/21 02/06/21 00:25 02:15 Temp 37.1 Pulse 128 Resp 18 B/P (MAP) 135/87 (103) Pulse Ox 96 O2 Delivery Room Air O2 Flow Rate 1.00 Capillary Refill : Less Than 3 Seconds Height, Weight, BMI Height: '" Weight: lbs. oz. kg; 38.00 BMI Method: General Appearance: no apparent distress, obese, other (PART OF HAIR DYED BRIGHT RED; PT WITH SLIGHTLY SLURRED SPEECH AND UNSTEADY GAIT. PT IS YELLING, CURSING, VERY BELLIGERENT AND SOMEWHAT UNCOOPERATIVE. REEKS OF ETOH, EVEN WHILE WEARING N-95 MASK) Neck: normal inspection Respiratory: normal breath sounds, no respiratory distress, no accessory muscle use Cardiovascular: normal peripheral pulses, no edema, no JVD, no murmur, tachycardia Gastrointestinal: non tender, soft Extremities: normal capillary refill, other (EXTENISIV LINEAR SCARRING TO BILATERAL FOREARMS AND ANTERIOR THIGHS; MULTIPLE RECENT LINEAR WOUNDS, WITH THE LARGEST BEING 3-6 CM IN LENGTH, WITH A MULTITUDE OF OTHER SMALLER, SUPERFICIAL WOUNDS. VERY SLIGHT OOZING FROM THE LARGER WOUNDS AT THIS TIME. MOTOR/SENSORY/VASCULAR INTACT. NO EVIDENCE OF TENDON INJURY) Neurologic/Psychiatric: no motor/sensory deficits, alert Appearance/Memory: disheveled, impaired insight Behavior/Eye Contact: increased rate of speech, belligerent, uncooperative, other Thoughts/Hallucinations: no apparent hallucination Skin: normal color, warm/dry, other ( ABOVE) Procedures/Interventions Other Wound Location RIGHT FOREARM Wound's Depth, Shape: linear, sub Q Anesthesia: Lidocaine w/ Epi Staple Repair: Stapler 35W Progress 9 OF THE LARGER WOUNDS, RANGING IN SIZE FROM 3 CM TO 6 CM IN LENGTH WERE REPAIRED MULTIPLE OTHER WOUNDS WERE SMALLER, MORE SUPERFICIAL, AND NON-GAPING DID NOT REQUIRE REPAIR WOUNDS TO BE REPAIRED WERE INJECTED WITH 1% LIDOCAINE WITH EPINEPHRINE, ALL THOROUGHLY IRRIGATED WITH BETASEPT AND SALINE 9 WOUNDS CLOSED WITH A TOTAL OF #53 LUBA DRESSED WITH ANTIBIOTIC OINTMENT AND NON-ADHERENT DRESSING AND GAUZE WITH TAPE Progress/Results/Core Measures Results/Orders Lab Results Laboratory Tests Test 02/06/21 00:45 02/06/21 01:00 02/06/21 01:15 Range/Units Urine Color YELLOW Urine Clarity SL CLOUDY Urine pH 6.0 5-9 Urine Specific [place] >=1.030 1.016-1.022 Urine Protein 3+ H NEGATIVE Urine Glucose (UA) NEGATIVE NEGATIVE Urine Ketones NEGATIVE NEGATIVE Urine Nitrite NEGATIVE NEGATIVE Urine Bilirubin NEGATIVE NEGATIVE Urine Urobilinogen 0.2 < = 1.0 MG/DL Urine Leukocyte Esterase NEGATIVE NEGATIVE Urine RBC (Auto) TRACE-I NEGATIVE Urine RBC 2-5 H /HPF Urine WBC 0-2 /HPF Urine Squamous Epithelial Cells 2-5 /HPF Urine Renal Epithelial Cells NONE /HPF Urine Crystals PRESENT H /LPF Urine Calcium Oxalate Crystals FEW H /LPF Urine Bacteria NEGATIVE /HPF Urine Casts NONE /LPF Urine Mucus NEGATIVE /LPF Urine Culture Indicated NO Urine Test NEGATIVE NEGATIVE Urine Opiates Screen NEGATIVE NEGATIVE Urine Oxycodone Screen NEGATIVE NEGATIVE Urine Methadone Screen NEGATIVE NEGATIVE Urine Propoxyphene Screen NEGATIVE NEGATIVE Urine Barbiturates Screen NEGATIVE NEGATIVE Ur Tricyclic Antidepressants Screen NEGATIVE NEGATIVE Urine Phencyclidine Screen NEGATIVE NEGATIVE Urine Amphetamines Screen NEGATIVE NEGATIVE Urine Methamphetamines Screen NEGATIVE NEGATIVE Urine Benzodiazepines Screen NEGATIVE NEGATIVE Urine Cocaine Screen NEGATIVE NEGATIVE Urine Cannabinoids Screen POSITIVE H NEGATIVE White Blood Count 8.8 4.3-11.0 10^3/uL Red Blood Count 4.34 3.80-5.11 10^6/uL Hemoglobin 12.9 11.5-16.0 g/dL Hematocrit 38 35-52 % Mean Corpuscular Volume 88 80-99 fL Mean Corpuscular Hemoglobin 30 25-34 pg Mean Corpuscular Hemoglobin Concent 34 32-36 g/dL Red Cell Distribution Width 13.2 10.0-14.5 % Platelet Count 300 130-400 10^3/uL Mean Platelet Volume 9.6 9.0-12.2 fL Immature Granulocyte % (Auto) 0 % Neutrophils (%) (Auto) 58 42-75 % Lymphocytes (%) (Auto) 35 12-44 % Monocytes (%) (Auto) 6 0-12 % Eosinophils (%) (Auto) 1 0-10 % Basophils (%) (Auto) 0 0-10 % Neutrophils # (Auto) 5.1 1.8-7.8 10^3/uL Lymphocytes # (Auto) 3.1 1.0-4.0 10^3/uL Monocytes # (Auto) 0.5 0.0-1.0 10^3/uL Eosinophils # (Auto) 0.1 0.0-0.3 10^3/uL Basophils # (Auto) 0.0 0.0-0.1 10^3/uL Immature Granulocyte # (Auto) 0.0 0.0-0.1 10^3/uL Sodium Level 145 135-145 MMOL/L Potassium Level 3.4 L 3.6-5.0 MMOL/L Chloride Level 105 98-107 MMOL/L Carbon Dioxide Level 21 21-32 MMOL/L Anion Gap 19 H 5-14 MMOL/L Blood Urea Nitrogen 22 H 7-18 MG/DL Creatinine 0.84 0.60-1.30 MG/DL Estimat Glomerular Filtration Rate 83 BUN/Creatinine Ratio 26 Glucose Level 104 70-105 MG/DL Calcium Level 9.4 8.5-10.1 MG/DL Corrected Calcium 8.5-10.1 MG/DL Total Bilirubin 0.2 0.1-1.0 MG/DL Aspartate Amino Transf (AST/SGOT) 19 5-34 U/L Alanine Aminotransferase (ALT/SGPT) 18 0-55 U/L Alkaline Phosphatase 64 40-136 U/L Total Protein 8.6 H 6.4-8.2 GM/DL Albumin 4.7 H 3.2-4.5 GM/DL TSH [place] Testing 1.00 0.35-4.94 UIU/ML Salicylates Level < 5.0 L 5.0-20.0 MG/DL Acetaminophen Level < 10 L 10-30 UG/ML Serum Alcohol 254 H <10 MG/DL SARS-CoV-2 RNA (RT-PCR) Not Detected Not Detecte My Orders Orders - ELDER SCOTT DO Urinalysis (02/06/21 00:31) Thyroid Analyzer (02/06/21 00:31) Drug Screen Stat (Urine) (02/06/21 00:31) Cbc With Automated Diff (02/06/21 00:31) Comprehensive Metabolic Panel (02/06/21 00:31) Alcohol (02/06/21 00:31) Acetaminophen (02/06/21 00:31) Salicylate (02/06/21 00:31) Ekg Tracing (02/06/21 00:31) Monitor-Rhythm Ecg Trace Only (02/06/21 00:31) Hcg,Qualitative Urine (02/06/21 00:31) Ed Iv/Invasive Line Start (02/06/21 00:31) Lactated Ringers (Lr 1000 Ml Iv Solution (02/06/21 00:45) Covid 19 Inhouse Test (02/06/21 00:38) Lidocaine/Epi 1% 1:100,000 (Xylocaine /E (02/06/21 01:30) Diphenhydramine Injection (Benadryl Inje (02/06/21 02:00) Lorazepam Injection (Ativan Injection) (02/06/21 02:00) Haloperidol Injection (Haldol Injectio (02/06/21 02:00) Ed Iv/Invasive Line Start (02/06/21 02:49) Lactated Ringers (Lr 1000 Ml Iv Solution (02/06/21 03:00) Medications Given in ED Current Medications Medications Dose Ordered Sig/Olinda Route Start Time Stop Time Status Last Admin Dose Admin Diphenhydramine HCl 50 mg ONCE ONCE IVP 02/06/21 02:00 02/06/21 02:01 DC 02/06/21 01:59 50 MG Haloperidol Lactate 5 mg ONCE ONCE IV 02/06/21 02:00 02/06/21 02:01 DC 02/06/21 02:00 5 MG Lactated Ringer's 1,000 ml @ 0 mls/hr Q0M ONCE IV 02/06/21 00:45 02/06/21 00:46 DC 02/06/21 01:14 0 MLS/HR Lidocaine/ Epinephrine 20 ml ONCE ONCE INJ 02/06/21 01:30 02/06/21 01:31 DC 02/06/21 01:32 20 ML Lorazepam 2 mg ONCE ONCE IVP 02/06/21 02:00 02/06/21 02:01 DC 02/06/21 01:59 2 MG Vital Signs/I&O 02/06/21 02/06/21 02/06/21 02/06/21 00:25 02:15 04:35 04:45 Temp 37.1 36.9 36.6 Pulse 128 98 99 Resp 18 17 18 B/P (MAP) 135/87 (103) 114/60 (103) 124/78 (93) Pulse Ox 96 96 94 96 O2 Delivery Room Air Nasal Cannula Nasal Cannula O2 Flow Rate 1.00 1.00 2.00 02/06/21 02/06/21 04:52 04:56 Pulse 100 O2 Delivery Nasal Cannula O2 Flow Rate 2.00 Blood Pressure Mean: 103 Progress Progress Note : Progress Note DEMANDING SOMETHING TO EAT AND DRINK AND A WARM BLANKET SOON SHE ARRIVES PT HAD RAPIDLY INCREASING BELLIGERENT BEHAVIOR--CURSING, YELLING, SCREAMING, CALLING ME AND STAFF VULGAR NAMES, ETC. NOT WANTING TO STAY ON THE BED PT WAS GIVEN HALDOL, ATIVAN, BENADRYL WITH IMPROVEMENT IN BEHAVIOR PT SLEPT FOR REMAINDER OF ER STAY. VITALS STABLE Initial ECG Impression Date: Feb 06, 2021 Initial ECG Impression Time: 00:47 Initial ECG Rate: 123 Initial ECG Rhythm: S.Tach Departure Communication (Admissions) 0251--SPOKE WITH DR. CRESPO, ACCEPTS PT FOR ADMIT, WITH IN-ROOM SITTER Impression Primary Impression: SUICIDAL BEHAVIOR WITH SELF HARM Additional Impressions: MULTIPLE SELF INFLICTED WOUNDS TO RIGHT FOREARM ACUTE ALCOHOL INTOXICATION IN ACTIVE ALCOHOLIC Marijuana use Depression Disposition: ADMITTED INPATIENT Condition: Stable Admissions Decision to Admit Reason: Admit from ER (General) Decision to Admit/Date: Feb 06, 2021 Time/Decision to Admit Time: 02:55 Departure-Patient Inst. Referrals: NO,LOCAL PHYSICIAN (PCP/Family) Primary Care Physician ELDER SCOTT DO Feb 06, 2021 03:30
[2021-02-06 04:45] VITALS: BP 124/78
[2021-02-06] MEDS ORDERED: D5 1/2 NS W/KCL 20 MEQ/L 1,000 ML IV ONE (04:47)
[2021-02-06] MEDS ORDERED: LORazepam 1 MG (ATIVAN) TAB PO PRN (05:00)
[2021-02-06] MEDS ORDERED: SENNA W/DOCUSATE (SENOKOT S) TABLET PO PRN (05:00)
[2021-02-06] MEDS ORDERED: LORazepam INJ 2 MG/ML (ATIVAN) VIAL IV PRN ×2 (05:00)
[2021-02-06] MEDS ORDERED: diphenhydrAMINE 50 MG/ML INJ (BENADRYL) IV PRN (05:00)
[2021-02-06] MEDS ORDERED: HALOPERIDOL 5 MG/ML (HALDOL) VIAL IV PRN (05:00)
[2021-02-06] MEDS ORDERED: LORazepam INJ 2 MG/ML (ATIVAN) VIAL IM/IV PRN (05:00)
[2021-02-06] MEDS ORDERED: ONDANSETRON 4 MG/2 ML (SDV) Z0FRAN IV PRN (05:00)
[2021-02-06] MEDS ORDERED: ONDANSETRON 4 MG (ZOFRAN) ORAL DISSOLVE TAB SL PRN (05:00)
[2021-02-06] MEDS ORDERED: ANTACID SUSP 30 ML UDC (MYLANTA) PO PRN (05:00)
[2021-02-06] MEDS ORDERED: D5 1/2 NS 1000 ML IV SOLUTION 1,000 ML IV PRN (05:00)
[2021-02-06] MEDS: D5 1/2 NS W/KCL 20 MEQ/L 1,000 ML IV SCH ×2 (05:04→11:48)
[2021-02-06 06:53] VITALS: BP 109/73
--- NOTE | 2021-02-06 07:20 | Short Stay Summary-Hospitalist ---
History of Present Illness HPI/Chief Complaint Chief complaint: Suicidal ideation History of present illness: This is a 25-year-old white female clinic patient of [facility] who just delivered a baby in April 2020 who has a history of alcoholism who presented after cutting her right arm with a razor blade while intoxicated. She has history of heavy alcohol use. Patient remained stable received banana bag had no ill effects during the hospital stay and psych treatment evaluation was performed and outpatient follow-up will be set up. Source: patient Exam Limitations: no limitations Date Seen 02/06/21 Time Seen by a Provider: 10:00 Attending Physician Marta Barker DO PCP No,Local Physician Referring Physician Date of Admission Feb 06, 2021 at 02:55 Home Medications & Allergies Home Medications Reviewed patient Home Medication Reconciliation performed by pharmacy medication reconciliations piano technician and/or nursing. Patients Allergies have been reviewed. 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 Pt feels they are or have been: No Immunizations Up To Date Date of Influenza Vaccine: Apr 08, 2020 Tetanus Booster (TDap): Unknown Hepatitis A: Yes Hepatitis B: Yes PED Vaccines UTD: Yes Seasonal Allergies Seasonal Allergies: Yes Current Status status: Unknown status: No Advance Directives: No Communicates: Verbally Primary Language: Albanian Preferred Spoken Language: Albanian Is interpretation needed?: No Sensory deficits: Other Implanted or Applied Medical D: None Past Medical History Currently Using CPAP: No Currently Using BIPAP: No Anxiety, Suicide Attempts, Depression Blood Disorders: No n/a Family Medical History Asthma G8 BROTHER Diabetes mellitus 19 MOTHER Review of Systems Constitutional: see HPI Physical Exam Physical Exam Vital Signs Vital Signs - First Documented 02/06/21 02/06/21 00:25 02:15 Temp 37.1 Pulse 128 Resp 18 B/P (MAP) 135/87 (103) Pulse Ox 96 O2 Delivery Room Air O2 Flow Rate 1.00 Capillary Refill : Less Than 3 Seconds Height, Weight, BMI Height: '" Weight: lbs. oz. kg; 42.92 BMI Method: General Appearance: No Apparent Distress, WD/WN, Obese Eyes: Bilateral Eye Normal Inspection, Bilateral Eye PERRL HEENT: PERRL/EOMI, Normal ENT Inspection, Pharynx Normal Neck: Full Range of Motion, Normal Inspection, Non Tender, Supple, Carotid Bruit Respiratory: Chest Non Tender, Lungs Clear, Normal Breath Sounds, No Accessory Muscle Use, No Respiratory Distress Cardiovascular: Regular Rate, Rhythm, No Edema, No Gallop, No JVD, No Murmur, Normal Peripheral Pulses Gastrointestinal: Normal Bowel Sounds, No Organomegaly, No Pulsatile Mass, Non Tender, Soft Back: Normal Inspection, No CVA Tenderness, No Vertebral Tenderness Extremity: Normal Capillary Refill, Normal Inspection, Normal Range of Motion, Non Tender, No Calf Tenderness, No Pedal Edema Neurologic/Psychiatric: Alert, Oriented x3, No Motor/Sensory Deficits, Normal Mood/Affect Skin: Normal Color, Warm/Dry Lymphatic: No Adenopathy Results Results/Procedures Labs Laboratory Tests 02/06/21 01:00 Patient resulted labs reviewed. Short Stay Diagnosis Discharge Diagnosis-Short Stay Admission Diagnosis Suicidal ideation Alcohol intoxication Alcoholism Hypokalemia Final Discharge Diagnosis Suicidal ideation Alcohol intoxication Alcoholism Hypokalemia Conclusion Plan Discharge home MARTA BARKER DO Feb 06, 2021 07:20
[2021-02-06 07:40] VITALS: BP 109/73
[2021-02-06] MEDS ORDERED: THIAMINE INJECTION 100 MG, FOLIC ACID INJECTION 1 MG, MAGNESIUM SULFATE 2 GM, VITAMIN M... IV SCH ×5 (09:00)
[2021-02-06] MEDS ORDERED: KCL 20 MEQ TAB (K-DUR) PO ONE (11:30)
[2021-02-06 16:19] VITALS: BP 132/89
== END 2021-02-06 17:40 | disposition home or self-care (01) ==
LOC: EDUNIT# 00:24 → ER 00:26 → INTOOBSV 02:55 → CSD 02:55
PROVIDERS: ADMIT Family Medicine; ATTEND Internal Medicine
DX: R45.851 Suicidal ideations (principal); S50.911A Unspecified superficial injury of right forearm, initial encounter; F32.9 Major depressive disorder, single episode, unspecified; F41.9 Anxiety disorder, unspecified; E87.6 Hypokalemia; J30.2 Other seasonal allergic rhinitis; F10.129 Alcohol abuse with intoxication, unspecified; R00.0 Tachycardia, unspecified; Z87.891 Personal history of nicotine dependence; Z79.899 Other long term (current) drug therapy; Z79.891 Long term (current) use of opiate analgesic; Z79.1 Long term (current) use of non-steroidal anti-inflammatories (NSAID)
CPT/HCPCS: 80053; 80306; 81000; 84443; 84703; 85025; 87636; 93005; 93041; 99284; G0480 ×3; 36415; 80320; 80329

== ENCOUNTER 2021-02-18 21:00 | Emergency (ER) | payer MEDICAID ==
[2021-02-18] MEDS ORDERED: DROPERIDOL 5 MG/2 ML (INAPSINE) AMP IM ONE (21:15)
[2021-02-18] MEDS ORDERED: TETANUS,DIPTH,PERTUSS P/F (BOOSTRIX) 0.5 ML VIAL IM ONE (21:15)
--- NOTE | 2021-02-18 21:20 | ED Psychosocial ---
General Chief Complaint: Psych/Social Disorder Stated Complaint: INTOXICATION / R ARM LAC Source: patient, police, EMS Exam Limitations: no limitations (LUCIA PEREZ APRN) History of Present Illness Date Seen by Provider: Feb 18, 2021 Time Seen by Provider: 21:17 Initial Comments arrives to ER by [facility] from home after her emergency services were contacted by the patient's mother. Patient reportedly drank a large amount of alcohol tonight and has some self-inflicted wounds to the back of her right arm which were squirting blood. Tourniquet was applied at 2039 patient was transported to the emergency room, ivone during transport. Arrives with with Misha CHAVEZ. Timing/Duration: constant Severity: moderate (LUCIA PEREZ APRN) Allergies and Home Medications Allergies Coded Allergies: No Known Drug Allergies (Unverified , 02/25/20) Home Medications Docusate Sodium 100 Mg Capsule, 100 MG PO BID PRN for CONSTIPATION-1ST LINE Prescribed by: ORLANDO CALDERON on 04/25/20 1041 Ibuprofen 600 Mg Tablet, 600 MG PO Q6HR Prescribed by: ORLANDO CALDERON on 04/25/20 1041 Vit W-Ca,Fe,FA(<1 mg) 1 Each Tablet, 1 EACH PO DAILY, (Reported) Patient Home Medication List Home Medication List Reviewed: Yes (LUCIA PEREZ APRN) Review of Systems Constitutional: see HPI, other (unable to obtain) (LUCIA PEREZ APRN) Past Wtjdzgh-Eehztu-Dcwbgg Hx Immunizations Up To Date PED Vaccines UTD: Yes (LUCIA PEREZ APRN) Seasonal Allergies Seasonal Allergies: Yes (LUCIA PEREZ APRN) Past Medical History Surgeries: No Respiratory: No Currently Using CPAP: No Currently Using BIPAP: No Cardiac: No Neurological: No Genitourinary: No Gastrointestinal: No Musculoskeletal: No Endocrine: Yes (GESTATIONAL DIABETES, ) HEENT: No Cancer: No Psychosocial: Yes (SELF HARM/CUTTING) Anxiety, Suicide Attempts, Depression Integumentary: No Blood Disorders: No (LUCIA PEREZ APRN) Family Medical History Asthma G8 BROTHER Diabetes mellitus 19 MOTHER Physical Exam Vital Signs - First Documented 02/18/21 02/18/21 21:00 22:04 Pulse 115 Resp 30 B/P (MAP) 127/75 (92) Pulse Ox 98 O2 Delivery Nasal Cannula O2 Flow Rate 2.00 (LUCIO WOODWARD MD) Capillary Refill : (LUCIA PEREZ APRN) Height, Weight, BMI Height: '" Weight: lbs. oz. kg; 42.92 BMI Method: General Appearance: WD/WN, no apparent distress, obese, other (covered in blood. Belligerent, Stating "suck my marixa motherfucker!" to all staff that she sees. Tourniquet removed on arrival with only minimal bleeding to lac posterior right arm. ) Neck: non-tender, full range of motion Respiratory: no respiratory distress, no accessory muscle use Cardiovascular: no murmur, tachycardia Gastrointestinal: normal bowel sounds, non tender, soft Extremities: other (There are 3 lacerations to the dorsum of the right forearm. 1 of these is acute from tonight the other 2 are subacute over the course of the past week and patient confirms this. Each of these, though still open, has granulation tissue with a eschar over it. These need nothing more than antibiotic ointment and gauze dressing for management as they heal via secondary intention.) Neurologic/Psychiatric: alert Appearance/Memory: disheveled, impaired insight, impaired recent memory, impaired remote memory Behavior/Eye Contact: threatening eye contact, increased rate of speech, belligerent, compulsive, uncooperative Given droperidol 2.5mg IM on arrival with wonderful results, near immediate sedation. (LUCIA PEREZ APRN) Procedures/Interventions Wound Location: Upper Extremities Wound Length (cm): 3 Wound's Depth, Shape: linear, sub Q Wound Explored: clean Irrigated w/ Saline (ccs): 30 Anesthesia: Lidocaine w/ Epi Suture: Prolene Suture Size: 4-0 Number of Sutures: 1 Layer Closure?: 1 Number Deep Layer Sutures: 0 Sterile Dressing Applied?: Yes (LUCIA PEREZ APRN) Progress/Results/Core Measures Results/Orders Lab Results Laboratory Tests Test 02/18/21 21:10 02/18/21 22:30 02/18/21 23:00 Range/Units White Blood Count 9.0 4.3-11.0 10^3/uL Red Blood Count 3.47 L 3.80-5.11 10^6/uL Hemoglobin 10.2 L 11.5-16.0 g/dL Hematocrit 31 L 35-52 % Mean Corpuscular Volume 89 80-99 fL Mean Corpuscular Hemoglobin 29 25-34 pg Mean Corpuscular Hemoglobin Concent 33 32-36 g/dL Red Cell Distribution Width 13.0 10.0-14.5 % Platelet Count 298 130-400 10^3/uL Mean Platelet Volume 10.2 9.0-12.2 fL Immature Granulocyte % (Auto) 1 % Neutrophils (%) (Auto) 60 42-75 % Lymphocytes (%) (Auto) 32 12-44 % Monocytes (%) (Auto) 6 0-12 % Eosinophils (%) (Auto) 1 0-10 % Basophils (%) (Auto) 0 0-10 % Neutrophils # (Auto) 5.4 1.8-7.8 10^3/uL Lymphocytes # (Auto) 2.9 1.0-4.0 10^3/uL Monocytes # (Auto) 0.5 0.0-1.0 10^3/uL Eosinophils # (Auto) 0.1 0.0-0.3 10^3/uL Basophils # (Auto) 0.0 0.0-0.1 10^3/uL Immature Granulocyte # (Auto) 0.1 0.0-0.1 10^3/uL Sodium Level 142 135-145 MMOL/L Potassium Level 4.1 3.6-5.0 MMOL/L Chloride Level 110 H 98-107 MMOL/L Carbon Dioxide Level 17 L 21-32 MMOL/L Anion Gap 15 H 5-14 MMOL/L Blood Urea Nitrogen 12 7-18 MG/DL Creatinine 0.74 0.60-1.30 MG/DL Estimat Glomerular Filtration Rate 96 BUN/Creatinine Ratio 16 Glucose Level 104 70-105 MG/DL Calcium Level 9.1 8.5-10.1 MG/DL Corrected Calcium 9.1 8.5-10.1 MG/DL Total Bilirubin < 0.1 L 0.1-1.0 MG/DL Aspartate Amino Transf (AST/SGOT) 29 5-34 U/L Alanine Aminotransferase (ALT/SGPT) 16 0-55 U/L Alkaline Phosphatase 53 40-136 U/L Total Protein 7.5 6.4-8.2 GM/DL Albumin 4.0 3.2-4.5 GM/DL Salicylates Level < 5.0 L 5.0-20.0 MG/DL Acetaminophen Level < 10 L 10-30 UG/ML Serum Alcohol 223 H <10 MG/DL Prothrombin Time 11.9 L 12.2-14.7 SEC INR Comment 0.8 0.8-1.4 Urine Color YELLOW Urine Clarity CLEAR Urine pH 5.5 5-9 Urine Specific [place] 1.025 H 1.016-1.022 Urine Protein NEGATIVE NEGATIVE Urine Glucose (UA) NEGATIVE NEGATIVE Urine Ketones NEGATIVE NEGATIVE Urine Nitrite NEGATIVE NEGATIVE Urine Bilirubin NEGATIVE NEGATIVE Urine Urobilinogen 0.2 < = 1.0 MG/DL Urine Leukocyte Esterase NEGATIVE NEGATIVE Urine RBC (Auto) 1+ H NEGATIVE Urine RBC RARE /HPF Urine WBC NONE /HPF Urine Squamous Epithelial Cells 0-2 /HPF Urine Crystals NONE /LPF Urine Bacteria NEGATIVE /HPF Urine Casts NONE /LPF Urine Mucus NEGATIVE /LPF Urine Culture Indicated NO Urine Opiates Screen NEGATIVE NEGATIVE Urine Oxycodone Screen NEGATIVE NEGATIVE Urine Methadone Screen NEGATIVE NEGATIVE Urine Propoxyphene Screen NEGATIVE NEGATIVE Urine Barbiturates Screen NEGATIVE NEGATIVE Ur Tricyclic Antidepressants Screen NEGATIVE NEGATIVE Urine Phencyclidine Screen NEGATIVE NEGATIVE Urine Amphetamines Screen NEGATIVE NEGATIVE Urine Methamphetamines Screen NEGATIVE NEGATIVE Urine Benzodiazepines Screen NEGATIVE NEGATIVE Urine Cocaine Screen NEGATIVE NEGATIVE Urine Cannabinoids Screen POSITIVE H NEGATIVE (LUCIO WOODWARD MD) Medications Given in ED Current Medications Medications Dose Ordered Sig/[place]inda Route Start Time Stop Time Status Last Admin Dose Admin Diphtheria/ Tetanus/Acell Pertussis 0.5 ml ONCE ONCE IM 02/18/21 21:15 02/18/21 21:17 DC 02/18/21 22:45 0.5 ML Droperidol 2.5 mg ONCE ONCE IM 02/18/21 21:15 02/18/21 21:17 DC 02/18/21 21:02 2.5 MG (LUCIO WOODWARD MD) Vital Signs/I&O 02/18/21 02/18/21 21:00 22:04 Pulse 115 Resp 30 B/P (MAP) 127/75 (92) Pulse Ox 98 94 O2 Delivery Nasal Cannula O2 Flow Rate 2.00 (LUCIO WOODWARD MD) Progress Progress Note : Progress Note 2300: Assumed care of the patient from Lucia Perez APRN pending sobering up and reevaluation. Monitor patient. 0100: Patient resting without difficulty. Continue to monitor. 0300: I did discuss at length with the patient regarding her cutting habit. She does have follow-up with [facility] mental health services in 1 month. She admits that she does cut to resolve conflict but is not trying to kill herself. She is adamant about that she is not suicidal. She wants help and is seeking follow-up. She also admits that alcohol did not help the situation tonight. She would like to go home and continue to pursue follow- up outpatient which I think is reasonable at this point. I did offer mental health screening which she is declined. Discharged home with return precautions. Patient verbalized understanding of instructions and agreement with plan. (LUCIO WOODWARD MD) Departure Impression Primary Impression: Alcohol intoxication Qualified Codes: F10.920 - Alcohol use, unspecified with intoxication, uncomplicated Additional Impressions: Self-inflicted injury Deliberate self-cutting Disposition: HOME, SELF-CARE Condition: Stable Departure-Patient Inst. Decision time for Depature: 03:10 (LUCIO WOODWARD MD) Referrals: NO,LOCAL PHYSICIAN (PCP/Family) Primary Care Physician Patient Instructions: Alcohol Intoxication ED, Self-Harm Add. Discharge Instructions: All discharge instructions reviewed with patient and/or family. Voiced understanding. You should avoid alcohol. Self cutting is dangerous. It is very important that you seek mental health evaluation to help you through these times. Keep follow- up with [facility] to mental health services. You may also call [facility] health and see if you can get appointment sooner as they are able to help you as well. Remember that you are never alone. Return to the emergency department for any worsening, suicidal thoughts, self-inflicted injuries or other concerns as needed. You may also call [facility], which is a 24-hour mental health hotline, if you are having increasing mental health concerns.. LUCIA PEREZ APRN Feb 18, 2021 21:20 LUCIO WOODWARD MD Feb 19, 2021 03:13
[2021-02-18 21:22] LABS: BASOPHILS % (AUTO) 0 % (0-10); EOSINOPHILS # (AUTO) 0.1 10^3/uL (0.0-0.3); EOSINOPHILS % (AUTO) 1 % (0-10); HEMATOCRIT 31 % (35-52); HEMOGLOBIN 10.2 g/dL (11.5-16.0); LYMPHOCYTES # (AUTO) 2.9 10^3/uL (1.0-4.0); LYMPHOCYTES % (AUTO) 32 % (12-44); MEAN CORPUSCULAR HEMOGLOBIN 29 pg (25-34); MEAN CORPUSCULAR HGB CONC 33 g/dL (32-36); MEAN CORPUSCULAR VOLUME 89 fL (80-99); MEAN PLATELET VOLUME 10.2 fL (9.0-12.2); MONOCYTES # (AUTO) 0.5 10^3/uL (0.0-1.0); MONOCYTES % (AUTO) 6 % (0-12); NEUTROPHILS # (AUTO) 5.4 10^3/uL (1.8-7.8); NEUTROPHILS % (AUTO) 60 % (42-75); PLATELET COUNT 298 10^3/uL (130-400)
[2021-02-18 21:27] LABS: CHLORIDE 110 MMOL/L (98-107); POTASSIUM 4.1 MMOL/L (3.6-5.0); SODIUM 142 MMOL/L (135-145)
[2021-02-18 21:28] LABS: CALCIUM 9.1 MG/DL (8.5-10.1)
[2021-02-18 21:29] LABS: GLUCOSE 104 MG/DL (70-105); TOTAL PROTEIN 7.5 GM/DL (6.4-8.2)
[2021-02-18 21:31] LABS: BILIRUBIN,TOTAL < 0.1 MG/DL (0.1-1.0); CARBON DIOXIDE 17 MMOL/L (21-32)
[2021-02-18 21:33] LABS: ALKALINE PHOSPHATASE 53 U/L (40-136); CREATININE SERUM 0.74 MG/DL (0.60-1.30); GFR ESTIMATED 96
[2021-02-18 21:34] LABS: BUN/CREATININE RATIO 16
[2021-02-18 21:35] LABS: ACETAMINOPHEN < 10 UG/ML (10-30)
[2021-02-18 21:36] LABS: ALANINE AMINOTRANSFERASE 16 U/L (0-55); SALICYLATE < 5.0 MG/DL (5.0-20.0)
[2021-02-18 22:53] LABS: INR 0.8 (0.8-1.4); PROTHROMBIN TIME PATIENT 11.9 SEC (12.2-14.7)
[2021-02-18 23:09] LABS: BILIRUBIN,URINE NEGATIVE (NEGATIVE); CLARITY,URINE CLEAR; COLOR,URINE YELLOW; GLUCOSE, URINE (UA) NEGATIVE (NEGATIVE); KETONES,URINE NEGATIVE (NEGATIVE); LEUKOCYTE ESTERASE ,URINE NEGATIVE (NEGATIVE); NITRITE,URINE NEGATIVE (NEGATIVE); PH,URINE 5.5 (5-9); PROTEIN,URINE NEGATIVE (NEGATIVE)
[2021-02-18 23:23] LABS: AMPHETAMINE SCREEN, URINE NEGATIVE (NEGATIVE); BARBITURATE SCREEN URINE NEGATIVE (NEGATIVE); BENZODIAZEPINES SCREEN URINE NEGATIVE (NEGATIVE); CANNABINOID SCREEN, URINE POSITIVE (NEGATIVE); COCAINE SCREEN URINE NEGATIVE (NEGATIVE); METHADONE STAT NEGATIVE (NEGATIVE); METHAMPHETAMINE SCREEN URINE S NEGATIVE (NEGATIVE); OPIATE SCREEN URINE NEGATIVE (NEGATIVE); OXYCODONE STAT NEGATIVE (NEGATIVE); PROPOXYPHENE STAT NEGATIVE (NEGATIVE); TRICYCLIC ANTIDEPRESSANTS SCRE NEGATIVE (NEGATIVE)
[2021-02-18 23:24] LABS: BACTERIA,URINE NEGATIVE /HPF; RBC,URINE RARE /HPF; SQUAMOUS EPITHELIAL CELL,UR 0-2 /HPF
[2021-02-19 03:22] VITALS: BP 148/104
== END 2021-02-19 03:22 | disposition home or self-care (01) ==
LOC: EDUNIT# 21:00 → ER 21:01
DX: S51.811A Laceration without foreign body of right forearm, initial encounter (principal); F10.129 Alcohol abuse with intoxication, unspecified; E66.9 Obesity, unspecified; Z68.41 Body mass index [BMI] 40.0-44.9, adult; Z23 Encounter for immunization; X78.9XXA Intentional self-harm by unspecified sharp object, initial encounter
CPT/HCPCS: 80053; 80306; 81000; 85025; 85610; 90471; 93005; 96372; 99284; G0480 ×3; 36415; 80320; 80329; 90715